=== PATIENT | female | born 1970 | race Caucasian/White ===

== ENCOUNTER 2020-11-04 23:34 | Emergency (ER) | payer OTHER, SELFPAY ==
[~2020-11-04] VITALS: Ht 165.1 cm; Wt 70.3 kg
[2020-11-04 23:50] VITALS: BP_SYST 126
--- NOTE | 2020-11-04 23:50 | NUR ---
ER Dr. Fowler at bedside examining patient.
--- NOTE | 2020-11-04 23:50 | NUR ---
Patient BIB by family from home. C/O cough, bodyache x 10 days. Per family reported, patient had bodyache, cough, weakness and lost smell for 10 days. Patient exposed with family who test positive. Hx DM, HTN and Asthma. A/O,X4, cough, Oxygen sat 94 % RA, no SOB, body ache and weakness.
--- NOTE | 2020-11-05 00:27 | NUR ---
Swabs for COVID-19 and send to lab.
[2020-11-05] MEDS ORDERED: GLU850 PO (01:17)
[2020-11-05] MEDS ORDERED: INSU100V9 SQ (01:17)
--- NOTE | 2020-11-05 01:41 | NUR ---
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 Patient tolerated well.
[2020-11-05 02:31] LABS: BASOPHILS % (AUTO) 0.2 % (0.0-2.0); EOSINOPHILS % (AUTO) 0.3 % (0.0-4.0); HEMATOCRIT 34.6 % (36-48); HEMOGLOBIN 11.6 g/dL (12.0-16.0); LYMPHOCYTES # (AUTO) 0.6 K/uL (1.0-5.5); LYMPHOCYTES % (AUTO) 14.7 % (20.5-51.5); MEAN CORPUSCULAR HEMOGLOBIN 29 pg (27-31); MEAN CORPUSCULAR HGB CONC 34 % (32-36); MEAN CORPUSCULAR VOLUME 85 fL (79.0-98.0); MONOCYTES # (AUTO) 0.2 K/uL (0.0-1.0); NEUTROPHILS # (AUTO) 3.5 K/uL (1.8-7.7); NEUTROPHILS % (AUTO) 80.8 % (40.0-70.0); PLATELET COUNT (AUTO) 142 K/uL (130-430); RED BLOOD CELL COUNT(AUTO) 4.07 MIL/uL (4.2-6.2); RED CELL DISTRIBUTION WIDTH 13.4 % (9.0-15.0); WHITE BLOOD COUNT (AUTO) 4.3 K/uL (4.8-10.8)
[2020-11-05 03:57] VITALS: BP_SYST 126
--- NOTE | 2020-11-05 03:57 | NUR ---
Patient given written and verbal discharge instructions and verbalizes understanding. ER MD discussed with patient the results and treatment provided. Patient in stable condition. ID arm band removed. Rx of Albuterol and Zithoromax Z-MAHESH given. Patient educated on pain management and to follow up with PMD. Pain Scale 2/10. Opportunity for questions provided and answered. Medication side effect fact sheet provided.
== END 2020-11-05 03:57 | disposition home or self-care (01) ==
LOC: SED 23:34
DX: J18.9 Pneumonia, unspecified organism (principal); J45.901 Unspecified asthma with (acute) exacerbation; E11.9 Type 2 diabetes mellitus without complications; Z79.4 Long term (current) use of insulin; Z20.828 Contact with and (suspected) exposure to other viral communicable diseases
CPT/HCPCS: 36415; 71045; 84484; 85025; 85379; 99284